=== PATIENT | female | born 1995 | race Caucasian/White ===

== ENCOUNTER 2020-11-24 17:46 | Emergency (ER) | payer BC ==
[~2020-11-24] VITALS: Ht 152.4 cm; Wt 59.9 kg
[2020-11-24 17:50] VITALS: Ht 152.4 cm; Wt 59.9 kg
[2020-11-24 20:08] VITALS: BP 119/62
== END 2020-11-24 20:08 | disposition home or self-care (01) ==
LOC: ED 17:46
DX: R07.89 Other chest pain (principal)